=== PATIENT | male | born 1980 | race African-American/Black ===

== ENCOUNTER 2019-04-07 22:37 | Emergency (ER) | payer SELFPAY ==
[~2019-04-07] VITALS: Ht 180.3 cm; Wt 67.1 kg
[~2019-04-07 22:37] MED LIST: AZITHROMYCIN250 MG ORAL; FLAGYL500 MG ORAL; IBUPROFEN600 MG ORAL; RANITIDINE HCL150 MG ORAL
[2019-04-07 22:58] VITALS: BP 123/77
--- NOTE | 2019-04-07 23:00 | NUR ---
ED Nurse Note: PATIENT WALKED IN TO ED C/O INSECT BITE ON THE LEFT BUTTOCK. STATES PAIN RADIATES TO GROIN X TUESDAY MORNING. AAO X4, VSS AT THIS TIME, SKIN IS WARM TO TOUCH.
[2019-04-07] MEDS ORDERED: CEPHALEXIN500 MG ORAL (23:10)
--- NOTE | 2019-04-07 23:14 | Emergency Room Report ---
History of Present Illness General Chief Complaint: Animal Bite Source: Patient Present Illness HPI Disclaimer: Please note that this report is being documented using [employer] technology. This can lead to erroneous entry secondary to incorrect interpretation by the dictating instrument. HPI: 38-year-old otherwise a female presents for evaluation of a rash of the left buttock. Symptoms began approximately 5 to 6 days ago when he first noticed a pimple that he tried to pop. He states he expressed some purulent material 3 or 4 days ago however then it has become red, tender and progressively more irritated. Denies any further drainage. Denies fever, chills, vomiting, diarrhea. He notes some samaria pain spreading around the left buttock. No other rash or skin breakdown noted. Is not allergic to any antibiotics. Does not inject any medications. PMH: Denies PSH: Denies Allergies: Denies Social Hx: Marijuana use Allergies: Coded Allergies: No Known Allergies (Unverified , 11/28/14) Nursing Documentation-PMH Past Medical History: No Stated History Review of Systems All Other Systems: negative except mentioned in HPI Physical Exam Vital Signs Date Time Temp Pulse Resp B/P (MAP) Pulse Ox O2 Delivery O2 Flow Rate FiO2 04/07/19 22:40 98.1 78 16 123/77 (92) 95 Room Air General: Awake and alert, no acute distress HEENT: NC/AT. EOMI. Resp: Normal work of breathing Skin: 6 x 6 cm area of erythema, warmth and induration over the left buttock. Very tender to palpation. No fluctuance. Ultrasound does not show any deep space fluid collection but does show cobblestoning consistent with cellulitis MSK: Normal tone and bulk. Moving all extremities. No obvious deformity. Neuro: Awake and alert. Mentating appropriately Medical Decision Making Diagnostic Impression: Primary Impression: Cellulitis ER Course 38-year-old male presents for evaluation of painful warm and erythematous rash of the left buttock. Appears to be a cellulitis without evidence of deep space abscess. Patient be treated with Keflex as an outpatient and follow with 1 of the clinics listed in his discharge paperwork. He can come to the emergency department for reevaluation continue using Tylenol and Motrin as needed for pain. No reported allergies does not inject any medications. Otherwise well with stable vital signs. Will be discharged home with outpatient follow-up. We discussed reasons to return to the emergency department. He understands and agrees with this treatment plan. Last Vital Signs Date Time Temp Pulse Resp B/P (MAP) Pulse Ox O2 Delivery O2 Flow Rate FiO2 04/07/19 22:58 98.1 16 123/77 95 Room Air 04/07/19 22:40 78 Disposition: HOME, SELF-CARE Condition: Stable Scripts Cephalexin* (KEFLEX*) 500 Mg Capsule 500 MG ORAL EVERY 12 HOURS for 10 Days, #20 CAP 0 Refills Prov: Mike Sellers MD 04/07/19 [facility]: [facility] Patient Instructions: Cellulitis, [id number] Additional Instructions: Your evaluated today for a wound on the left buttocks. Appears to be a skin infection which we will treat with antibiotics for 10 days. Do not skip any doses and make sure to finish all the antibiotics that are prescribed to you. Follow-up with 1 of the clinics listed here in your paperwork within 1 to 2 weeks. Return with any signs of severe infection like high fevers, vomiting, spreading rash. Return to the emergency department any new or worsening symptoms Mike Sellers MD Apr 07, 2019 23:14
--- NOTE | 2019-04-07 23:25 | NUR ---
ED Nurse Note: Pt cleared by health care Provider for discharge. DC instructions/prescription was given and explained to pt and verbalized understanding of teachings. All medical deviecs such as ID band removed. Pt is AAO x4, ambulatory and left with all personal belongings.
== END 2019-04-07 23:24 | disposition home or self-care (01) ==
LOC: EMR 23:00
DX: L03.317 Cellulitis of buttock (principal)
CPT/HCPCS: 99282